=== PATIENT | male | born 1995 | race Caucasian/White ===

== ENCOUNTER 2024-09-22 17:26 | Emergency (ER) | payer MEDICAID ==
[~2024-09-22] VITALS: Ht 162.6 cm; Wt 58.2 kg
[2024-09-22 17:48] VITALS: BP 108/69; PULSE 78; RESP 16; O2SAT 100
[2024-09-22] MEDS ORDERED: CEPH-585 PO (18:48)
[2024-09-22] MEDS: acetaminophen 325mg tablet PO ONE (19:00)
[2024-09-22] MEDS: cephalexin 250mg capsule PO ONE (19:00)
[2024-09-22 19:05] VITALS: TEMP 98
== END 2024-09-22 19:07 | disposition home or self-care (01) ==
LOC: ER 17:28
DX: N49.2 Inflammatory disorders of scrotum (principal); Z88.5 Allergy status to narcotic agent; Z88.1 Allergy status to other antibiotic agents
CPT/HCPCS: 99283